=== PATIENT | male | born 1985 | race Caucasian/White ===

== ENCOUNTER 2017-04-14 20:22 | Emergency (ER) | payer BC ==
[~2017-04-14] VITALS: Ht 177.8 cm; Wt 81.0 kg
[2017-04-14 22:24] VITALS: BP 127/89
[2017-04-14] MEDS ORDERED: IBUPROFEN 600MG TABLET PO ONE (22:30)
== END 2017-04-14 22:53 | disposition home or self-care (01) ==
LOC: ER 21:25
DX: S16.1XXA Strain of muscle, fascia and tendon at neck level, initial encounter (principal); V43.62XA Car passenger injured in collision with other type car in traffic accident, initial encounter; Y93.89 Activity, other specified; Y92.410 Unspecified street and highway as the place of occurrence of the external cause; Y99.8 Other external cause status
CPT/HCPCS: 99283